=== PATIENT | male | born 1950 | race Caucasian/White ===

== ENCOUNTER → 2017-07-17 | Outpatient (CLI) | payer BC ==
[~2017-07-17] MED LIST: BENAZEPRIL-HCT1 EAC1 PO; CARTIA XT240 MG PO; COUMADIN7.5 MG PO; FENOFIBRATE160 MG PO; LODINE XL400 M1 PO; LORTAB 10-5001 EACH PO; PRAVASTATIN SOD40 MG PO; TOPROL XL 50 MG50 MG PO; TOPROL XL PO; VICODIN 5/1 TAB 5/50 PO; VOLTAREN100 GM TP; WARFARIN SODIUM3 MG PO
--- NOTE | ~2017-07-17 | XA30 ---
[facility] A Service of [facility] RADIOLOGY TEXT RESULTS PATIENT: MORGAN GRANT LOCATION: [facility] : 52 UNIT #: [id number] AGE: [address]: Richmond Sarmiento MD SEX: M ORDER DR: [id number] [facility] [address] [place], [place] [address] [id number] O MR#: [id number] Acc #: [id number] NAME: MORGAN GRANT : 1950 SEX: M STUDY DATE/TIME: 07/17/2017 12:51 UNIT: [facility] ROOM: STUDY DESCRIPTION: XA Arthrocentesis Major Joint Attending Physician: Richmond Sarmiento M.D. Referring Physician: Richmond Sarmiento M.D. Ordering Physician: Richmond Sarmiento M.D. Primary Care Physician: No Primary Care Physician MEDICAL IMAGING REPORT This report is preliminary unless electronic signature is present EXAM Right hip injection with Depo-Medrol and Marcaine 07/17/2017. HISTORY Right hip pain. PROCEDURE Informed consent was obtained. Fluoroscopic guidance was utilized, with 0.7 minutes of fluoroscopy and single spot image. Skin site was selected with fluoroscopic guidance and marked, sterilely prepped and draped, and locally anesthetized. A 22-gauge spinal needle was inserted; intraarticular needle tip position confirmed with contrast injection, followed by 40 mg of Depo-Medrol and 3 mL of Marcaine. Patient reported a pre-procedure pain level of 4/10 and postprocedure pain level of 0/10. IMPRESSION Technically successful right hip injection with Depo-Medrol and Marcaine; pre-procedure pain 4/10, postprocedure pain 0/10. Dictated by... Tigre Carrillo M.D. THIS IS AN ELECTRONICALLY VERIFIED REPORT Tigre Carrillo M.D. at 07/18/2017 4:04 PM TEV/angelica TD: 07/18/2017 11:19 JOB #: [id number] MEDICAL IMAGING REPORT Page 1 of 1 COPY
== END | disposition home or self-care (01) ==
LOC: CIVR 12:35
DX: M16.11 Unilateral primary osteoarthritis, right hip (principal)
CPT/HCPCS: 77002; J1030; Q9967